=== PATIENT | male | born 1980 | race Two or more races ===

== ENCOUNTER 2024-03-26 18:38 | Emergency (ER) | payer OTHER ==
[2024-03-26 18:53] VITALS: BP 108/67; PULSE 76; RESP 20; TEMP 97.7; BMI 24.7
[2024-03-26] MEDS ORDERED: KETOROLAC TROMETHAMINE 30 MG/1 ML VIAL ONE (19:52)
[2024-03-26] MEDS ORDERED: LIDOCAINE 4% PATCH TP ONE (19:52)
[2024-03-26] MEDS: KETOROLAC TROMETHAMINE 30 MG/1 ML VIAL IM ONE (19:57)
[2024-03-26] MEDS: LIDOCAINE 4% PATCH TP ONE (19:58)
[2024-03-26] MEDS ORDERED: LIDOCAINE PATCH REMOVAL MC SCH (22:00)
== END 2024-03-26 20:34 | disposition home or self-care (01) ==
LOC: JERFT 18:38
PROC: 3E0133Z Introduction of Anti-inflammatory into Subcutaneous Tissue, Percutaneous Approach (ICD-10-PCS; principal; 2024-03-26)
DX: M54.50 Low back pain, unspecified (principal)
CPT/HCPCS: 99284-25